=== PATIENT | male | born 1940 | race Caucasian/White ===

== ENCOUNTER 2020-07-02 09:46 | Outpatient (CLI) | payer MEDICARE, OTHER ==
[2020-07-02] MEDS ORDERED: VISIPAQUE 320 MG/ML, 150ML BOTTLE ONE (11:41)
[2020-07-09] MEDS ORDERED: FINA5TAB4 PO (07:39)
[2020-07-09] MEDS ORDERED: LEVO100T5 PO (07:39)
[2020-07-09] MEDS ORDERED: Calcium PO (07:39)
[2020-07-09] MEDS ORDERED: MEMA5TAB PO (07:39)
[2020-07-09] MEDS ORDERED: CHOL10003 PO (07:39)
[2020-07-09] MEDS ORDERED: AMIO200T42 PO (07:39)
[2020-07-09] MEDS ORDERED: ASPI81TA45 PO (07:39)
[2020-07-09] MEDS ORDERED: GLUC1CAP40 PO (07:39)
[2020-07-09] MEDS ORDERED: LOSA1TAB22 PO (07:39)
[2020-07-09] MEDS ORDERED: Cranberry PO (07:39)
[2020-07-09] MEDS ORDERED: ACET-2065 PO (07:39)
[2020-07-09] MEDS ORDERED: AMLO-150 PO (07:39)
[2020-07-09] MEDS ORDERED: OMEG-206 PO (07:39)
[2020-07-09] MEDS ORDERED: ASCO500C2 PO (07:39)
[2020-07-09] MEDS ORDERED: MULT-658 PO (07:39)
[2020-07-09] MEDS ORDERED: CELE200C PO (07:39)
[2020-07-09] MEDS ORDERED: MELA10CA PO (07:40)
== END 2020-07-02 23:59 | disposition home or self-care (01) ==
LOC: CVU 09:46 → RAD 23:59
PROVIDERS: ATTEND Internal Medicine Cardiovascular Disease
DX: Z01.810 Encounter for preprocedural cardiovascular examination (principal); I65.23 Occlusion and stenosis of bilateral carotid arteries; R06.02 Shortness of breath; I35.0 Nonrheumatic aortic (valve) stenosis; I25.10 Atherosclerotic heart disease of native coronary artery without angina pectoris; M51.35 Other intervertebral disc degeneration, thoracolumbar region; J84.10 Pulmonary fibrosis, unspecified; M41.85 Other forms of scoliosis, thoracolumbar region
CPT/HCPCS: 71275; 74174; 93880; Q9967

== ENCOUNTER → 2020-08-01 | Outpatient (CLI) | payer MEDICARE, OTHER ==
[~2020-08-01] MED LIST: ACET-2065 PO; AMIO200T42 PO; AMLO-150 PO; ASCO500C2 PO; ASPI81TA45 PO; CELE200C PO; CHOL10003 PO; Calcium PO; Cranberry PO; FINA5TAB4 PO; GLUC1CAP40 PO; LEVO100T5 PO; LOSA1TAB22 PO; MELA10CA PO; MEMA5TAB PO; MULT-658 PO; OMEG-206 PO
== END | disposition home or self-care (01) ==
LOC: CVU 13:41
PROVIDERS: ATTEND Internal Medicine Cardiovascular Disease
DX: Z01.810 Encounter for preprocedural cardiovascular examination (principal); I65.29 Occlusion and stenosis of unspecified carotid artery; I11.9 Hypertensive heart disease without heart failure; I08.1 Rheumatic disorders of both mitral and tricuspid valves; Z95.4 Presence of other heart-valve replacement
CPT/HCPCS: 93306; 93356